=== PATIENT | male | born 1990 | race Caucasian/White ===

== ENCOUNTER 2021-12-01 02:38 | Emergency (ER) | payer MEDICAID, SELFPAY ==
[2021-12-01 02:41] VITALS: BP 116/75; PULSE 55; RESP 10; TEMP 37.2; O2SAT 99; BMI 18.5
--- NOTE | 2021-12-01 02:53 | EX.ED.DYSGE1 ---
HPI History of Present Illness Chief Complaint: Nausea/Vomiting Informant: patient and spouse/S.O. Onset/Context/Timing Onset: Days Context: Gradual Onset Current Severity: Mild Maximum Severity: Moderate Narrative Narrative: Patient present secondary to nausea, vomiting, diarrhea. Patient states he went to bed Saturday evening the feeling okay. He woke up early on the morning of the with vomiting. He has had vomiting and diarrhea over the past couple days. He had a negative Covid test on Saturday, but did test positive on a home test . He did have low-grade fever. He denies significant cough or congestion. states that he was laying on the floor and looked polk in color when she called 911. They gave him IV fluids in route he states he feels much improved. [facility] Medical History OCD (obsessive compulsive disorder) Home Medications fluvoxamine [Luvox] 100 mg PO DAILY 12/01/21 [History Last Taken Unknown] ondansetron 4 mg PO Q8H PRN #20 tab 12/01/21 [Rx Last Taken Unknown] promethazine 25 mg PO Q6H PRN #14 tab 12/01/21 [Rx Last Taken Unknown] Allergy/AdvReac Type Severity Reaction Status Date / Time metoclopramide [From Reglan] AdvReac Other Verified 12/01/21 02:40 Social History Smoking Status: Current every day smoker tobacco type: cigarettes ROS ROS ED Constitutional Constitutional ED: Reports fever(s); Denies chills Eyes Eyes: Denies change in vision ENT ENT ED: Denies sore throat Cardiovascular Cardiovascular: Denies chest pain Respiratory/Chest Respiratory/Chest: Denies cough or dyspnea Gastrointestinal Gastrointestinal: Reports diarrhea, nausea and vomiting; Denies abdominal pain Genitourinary Genitourinary ED: Denies dysuria Musculoskeletal Musculoskeletal: Reports myalgias; Denies back pain Integumentary Denies rash Neurologic Neurologic: Denies headache(s) or weakness Allergic/Immunologic Allergic/Immunologic ED: Denies urticaria EXAM Physical Exam Const Vital Signs: 12/01/21 02:41 12/01/21 04:02 12/01/21 05:04 Temperature 98.9 F Temperature Source Temporal Pulse Rate 55 L 53 L 56 L Respiratory Rate 10 L 18 20 H Blood Pressure 116/75 150/89 H 114/86 H Blood Pressure Mean 88 109 95 Pulse Ox 99 97 100 Oxygen Delivery Method Room Air Room Air Nasal Cannula Oxygen Flow Rate (L/min) 2 12/01/21 06:01 Temperature Temperature Source Pulse Rate 53 L Respiratory Rate 21 H Blood Pressure 103/68 Blood Pressure Mean 79 Pulse Ox 98 Oxygen Delivery Method Nasal Cannula Oxygen Flow Rate (L/min) 2 Positive well nourished and well developed General Appearance ED: well developed HEENT Reports moist mucous membranes Eyes PERRL and EOMs intact bilaterally Neck supple Chest Wall inspection of chest normal and palpation of chest normal Resp normal respiratory effort and clear to auscultation bilaterally Cardio regular rate and regular rhythm GI non-tender Auscultation: hypoactive bowel sounds Palpation: soft Extremity normal to inspection Neuro oriented x3 Sensorium / Orientation: alert Psych mental status grossly normal Skin no rashes or lesions noted MDM MDM MDM Narrative Medical decision making narrative: Lab work obtained. Patient had been given IV fluids with EMS. He had taken 8 mg of Zofran just prior to calling EMS. He was given IM Phenergan. Lab Data Attestation: I reviewed the patient's lab results. Labs: Laboratory Results - last 24 hr 12/01/21 12/01/21 12/01/21 03:05 03:05 03:05 WBC 10.7 RBC 4.66 Hgb 13.7 Hct 39.4 L MCV 84.5 MCH 29.4 MCHC 34.8 RDW Std Deviation 38.2 RDW Coeff of Rosi 12.5 Plt Count 157 MPV 9.1 Immature Gran % (Auto) 0.300 Neut % (Auto) 84.2 H Lymph % (Auto) 9.0 L [place] % (Auto) 6.3 Eos % (Auto) 0.0 Baso % (Auto) 0.2 Absolute Neuts (auto) 9.0 H Absolute Lymphs (auto) 0.96 Nucleated RBC % 0 PT 14.5 INR 1.2 APTT 36.1 Sodium 137 Potassium 3.3 L Chloride 102 Carbon Dioxide 25.0 Anion Gap 10 BUN 16 Creatinine 0.94 Estim Creat Clear Calc 96.11 Est GFR (MDRD) Af Amer 122 Est GFR (MDRD) Non-Af 101 BUN/Creatinine Ratio 17.1 Glucose 129 H Calcium 8.5 Radiography Chest X-Ray - ED: 1 View, Read by ED Physician and Chronic Changes Diagnostic Testing: Clinical Impression(s) from Imaging Studies Chest X-Ray 12/01/21 04:11 IMPRESSION: Normal x-ray examination of the chest. Electronically Signed: Annie Ruff MD at 4:52 EST Tel , Service support , EKG Initial EKG: Attestation: I personally reviewed and interpreted this EKG as follows: Interpretation: Sinus Bradycardia (Sinus bradycardia at 47 bpm. QTC is 408.) Treatment and Re-Evaluation Comments:: After IM Phenergan patient continued to vomit. He would drop his heart rate into the 30s with vomiting. After 2 doses of IM Phenergan patient was given a dose of IV Zofran. Lab work unremarkable other than slightly low potassium at 3.3. This was replaced with 20 mEq IV. Patient was given a dose of IV Protonix. At this time patient feels significantly improved and is able to tolerate p.o. fluids. He will be given new prescription for Zofran as well as Phenergan at home. At this time he is not hypoxic. He does not meet criteria for monoclonal antibody infusion. Return instructions have been provided. Discharge Plan Triage Chief Complaint: Nausea/Vomiting ED Provider: Ami Howe Dx/Rx/DC Orders Clinical Impression: COVID-19, Vomiting Instructions: Coronavirus Disease 2019 (COVID-19): Overview, Coronavirus Disease 2019 (COVID-19): Caring for Yourself or Others, ED Vomiting (Adult) Prescriptions: New ondansetron 4 mg tablet,disintegrating 4 mg PO Q8H PRN (Reason: nausea and vomiting) Qty: 20 RF: 0 promethazine 25 mg tablet 25 mg PO Q6H PRN (Reason: nausea and vomiting) Qty: 14 RF: 0 No Action fluvoxamine [Luvox] 100 mg Tablet 100 mg PO DAILY RF: 0 Primary Care Provider: Char Velazquez Referrals: Char Velazquez MD [Primary Care Provider] - 1-2 Weeks Disposition Disposition: Home, Self Care
[2021-12-01 03:19] LABS: Absolute Lymphocyte Count 0.96 X10^3/uL (0.83-4.51); Basophil# 0.02 X10^3/uL; Basophil% 0.2 % (0-1); Hematocrit 39.4 % (40-54); Hemoglobin 13.7 g/dL (13.0-16.5); Lymphocyte # 0.96 X10^3/ul (0.83-4.51); Mean Corp Hgb Conc 34.8 g/dL (32-36); Mean Corpuscular Hgb 29.4 pg (27.0-32.0); Mean Corpuscular Volume 84.5 fL (80-94); Mean Platelet Vol. 9.1 fl (6.2-12.0); Monocyte# 0.67 X10^3/uL; Monocyte% 6.3 % (0-10); NRBC Flagged by Analyzer 0 % (0-5); Neutrophil # 9.01 X10^3/uL (2.7-7.7); Neutrophil % 84.2 % (47-70); Platelet Count 157 K/mm3 (150-450); RBC Distribution Width CV 12.5 % (11.6-14.6); RBC Distribution Width SD 38.2 fl (35.1-43.9); Red Blood Count 4.66 M/mm3 (4.6-6.2); White Blood Count 10.7 K/mm3 (4.4-11.0)
[2021-12-01] MEDS: proMETHazine 25 MG/ML Syringe 12.5 MG IM ×2 (03:20→03:48)
[2021-12-01 03:32] LABS: International Normalized Ratio 1.2; Prothrombin Time (Protime)PT. 14.5 SECONDS (11.7-14.9)
[2021-12-01 03:33] LABS: Partial Thromboplast Time 36.1 Seconds (24.1-36.2)
[2021-12-01 03:37] LABS: Anion Gap 10 (5-15); BUN 16 mg/dL (7-18); BUN/Creat Ratio 17.1 RATIO (10-20); Calcium,Total 8.5 mg/dL (8.5-10.1); Chloride 102 mmol/L (98-107); Creatinine, Serum 0.94 mg/dL (0.70-1.30); EST Glomerular Filtration Rate 101 mL/min (>60); Est Glom Filt Rate - Afr Amer 122 mL/min (>60); Estimated Creatinine Clearance 96.11 ml/min; Glucose 129 mg/dL (74-106); Potassium 3.3 mmol/L (3.5-5.1); Sodium Level 137 mmol/L (136-145)
[2021-12-01] MEDS: 0.9% Normal Saline 1,000 ML 150 ML IV (04:00)
[2021-12-01] MEDS: Potassium Chloride 10mEq/100mL 10 MEQ/100 ML IV.SOLN. 100 MEQ IV BOLUS ×2 (04:01→05:03)
[2021-12-01 04:02] VITALS: BP 150/89; PULSE 53; RESP 18; O2SAT 97
--- NOTE | 2021-12-01 04:06 | EKG12_ITS ---
Test Reason : DYSRHYTHMIA Blood Pressure : / mmHG Vent. Rate : 047 BPM Atrial Rate : 047 BPM P-R Int : 162 ms QRS Dur : 096 ms QT Int : 462 ms P-R-T Axes : 075 072 059 degrees QTc Int : 408 ms Sinus bradycardia with sinus arrhythmia Otherwise normal ECG Confirmed by RAMONA CUADRA, CHE ([id number]), online editor KYLEE HORN ([id number]) on 12/06/2021 11:01:40 AM Referred By: SALOMÓN Confirmed By:CHE GREENE MD
--- NOTE | 2021-12-01 04:11 | RAD_ITS ---
STUDY: X-RAY CHEST REASON FOR EXAM: Male, 31 years old. sob, + covid TECHNIQUE: Single AP portable view of the chest. COMPARISON: None. FINDINGS: The lungs are clear and expanded. There is no demonstrated pleural abnormality. Normal size heart. Normal mediastinum and ambrosio. Normal visualized pulmonary arteries. Normal visualized aortic arch and descending thoracic aorta. Normal visualized thoracic spine. Normal visualized ribs, clavicles, and shoulders. There is no demonstrated abnormality of the visualized soft tissue structures of the upper abdomen. RAD/Chest 1 View (Portable) IMPRESSION: Normal x-ray examination of the chest. Electronically Signed: Annie Ruff MD at 4:52 EST Tel , Service support ,
[2021-12-01] MEDS: Ondansetron 4 MG/2 ML Vial IV (04:33)
[2021-12-01 05:04] VITALS: BP 114/86; PULSE 56; RESP 20; O2SAT 100
[2021-12-01 06:01] VITALS: BP 103/68; PULSE 53; RESP 21; O2SAT 98
[2021-12-01 07:18] VITALS: BP 103/64; PULSE 76; RESP 17; O2SAT 95
== END 2021-12-01 23:59 | disposition home or self-care (01) ==
PROVIDERS: Emergency Provider Emergency Medicine; PCP Family Medicine; Visit Provider Emergency Medicine
DX: U07.1 COVID-19 (principal); R11.2 Nausea with vomiting, unspecified; F17.210 Nicotine dependence, cigarettes, uncomplicated; F42.9 Obsessive-compulsive disorder, unspecified; Z79.899 Other long term (current) drug therapy
CPT/HCPCS: 36415; 71045; 80048; 85025; 85610; 85730; 93005; 96365; 96366; 96372; 96375; 99285; J7030; A4216; J2405